=== PATIENT | male | born 2005 | race Hispanic/Latino ===

== ENCOUNTER 2024-05-28 09:43 | Emergency (ER) | payer SELFPAY ==
[2024-05-28 11:19] LABS: Bacteria/HPF None Seen HPF (None Seen); Bilirubin Negative (Negative); Blood, Urine Negative (Negative); CAUTI Indications for Culture Pelvic or flank pain; Clarity Extra Turbid (Clear); Glucose, Urine (Dipstick) Normal (Negative); Ketone, Urine Negative (Negative); Leukocyte Negative Leu/uL (Negative); Nitrite Negative (Negative); Protein, Urine (Dipstick) 10 mg/dL (Neg-Trace); RBC/HPF None Seen HPF (0-3); Specific Gravity, Urine 1.019 (1.002-1.036); Squamous Epithelial None Seen HPF (0-3); Urobilinogen Normal mg/dL (Less than 2); WBC/HPF None Seen HPF (0-3)
[2024-05-28 11:22] LABS: Urine Culture Reflex No No
[2024-05-28 13:57] LABS: Chlam.trachomatis by PCR,Urine Not Detected (NotDetected); GC N.gonorrhoeae PCR,UrineVOID Not Detected (NotDetected)
== END 2024-05-28 14:00 | disposition home or self-care (01) ==
LOC: ERS 09:43
DX: R10.30 Lower abdominal pain, unspecified (principal); R07.9 Chest pain, unspecified
CPT/HCPCS: 71045; 76870; 81001; 87491; 87591; 93005; 93976; 96372; J1885